=== PATIENT | male | born 1975 | race American Indian/Alaskan Native ===

== ENCOUNTER 2018-07-24 06:11 | Inpatient (IN) | payer OTHER ==
[2018-07-24] MEDS ORDERED: NACL 0.9% 1000 ML 1,000 ML ONE (07:29)
[2018-07-24] MEDS ORDERED: MORPHINE IV ONE ×2 (07:37→12:56)
[2018-07-24] MEDS ORDERED: ZOFRAN IV ONE (07:37)
[2018-07-24] MEDS ORDERED: NACL 0.9% 1000 ML 1,000 ML IV ONE ×2 (07:37→09:11)
--- NOTE | 2018-07-24 07:45 | Emergency Department Report ---
ED General Adult HPI - General Chief complaint: Abdominal Pain Stated complaint: ABDOMINAL,FACE PAIN,BOWERS Time Seen by Provider: 07/24/18 07:27 Source: patient Mode of arrival: Ambulatory Limitations: No Limitations - History of Present Illness Initial comments: Patient is 43 years old male with history of HIV, compliant with his medication. Patient also had history of heart valve replacement he is on Coumadin. Patient presented to the ER complaining of chest pain, abdominal pain , nausea and vomiting. Patient stated that he is not able to keep anything down. Patient stated that he was fine until one week ago when he had swelling to his left jaw and maxillary area he went to an urgent care and he was given antibiotic. Patient stated that his tooth problem is better but started having dyspnea complaint patient denied any diarrhea or fever recently. - Related Data Home Medications Medication Instructions Recorded Confirmed Last Taken Atazanavir (Nf) [Reyataz] 200 mg PO DAILY 04/14/14 04/14/14 04/14/14 Emtricitabin/Tenofovir [TRUVADA 1 tab PO DAILY 04/14/14 04/14/14 04/14/14 200-300 mg] Ritonavir [Norvir] 100 mg PO DAILY 04/14/14 04/14/14 04/14/14 Warfarin [Coumadin] 7.5 mg PO QDAY 04/14/14 04/14/14 04/14/14 Previous Rx's Medication Instructions Recorded Last Taken Type HYDROcodone/APAP 5-325 [[place] 1 each PO Q6HR PRN #20 tablet 04/14/14 Unknown Rx 5/325 mg] Allergies Allergy/AdvReac Type Severity Reaction Status Date / Time No Known Allergies Allergy Verified 07/24/18 07:26 ED Review of Systems ROS: Stated complaint: ABDOMINAL,FACE PAIN,BOWERS Other details as noted in HPI Comment: All other systems reviewed and negative Constitutional: denies: chills, fever ENT: dental pain Respiratory: shortness of breath. denies: cough, orthopnea Cardiovascular: chest pain, palpitations. denies: dyspnea on exertion, orthopnea Gastrointestinal: abdominal pain, nausea, vomiting. denies: diarrhea, constipation, hematemesis, melena, hematochezia Musculoskeletal: denies: back pain Neurological: denies: headache ED Past Medical Hx - Past Medical History Hx HIV: Yes Additional medical history: artificial heart valve - Social History Smoking Status: Never Smoker - Medications Home Medications: Home Medications Medication Instructions Recorded Confirmed Last Taken Type Atazanavir (Nf) [Reyataz] 200 mg PO DAILY 04/14/14 04/14/14 04/14/14 History Emtricitabin/Tenofovir [TRUVADA 1 tab PO DAILY 04/14/14 04/14/14 04/14/14 History 200-300 mg] HYDROcodone/APAP 5-325 [[place] 1 each PO Q6HR PRN #20 tablet 04/14/14 Unknown Rx 5/325 mg] Ritonavir [Norvir] 100 mg PO DAILY 04/14/14 04/14/14 04/14/14 History Warfarin [Coumadin] 7.5 mg PO QDAY 04/14/14 04/14/14 04/14/14 History ED Physical Exam - General Limitations: No Limitations General appearance: alert, in no apparent distress - Head Head exam: Present: atraumatic, normocephalic - ENT ENT exam: Present: mucous membranes dry, other (left maxillary swelling and tenderness) - Neck Neck exam: Present: normal inspection, full ROM. Absent: tenderness, meningismus, lymphadenopathy, thyromegaly - Respiratory Respiratory exam: Present: normal lung sounds bilaterally. Absent: respiratory distress, wheezes, rales, rhonchi, stridor, chest wall tenderness, accessory muscle use, decreased breath sounds, prolonged expiratory - Cardiovascular Cardiovascular Exam: Present: tachycardia - GI/Abdominal GI/Abdominal exam: Present: soft, tenderness, normal bowel sounds. Absent: distended, guarding, rebound, rigid, diminished bowel sounds, organomegaly, mass , bruit, pulsatile mass, hernia - Extremities Exam Extremities exam: Present: normal inspection, full ROM, normal capillary refill. Absent: pedal edema, calf tenderness - Back Exam Back exam: Present: normal inspection, full ROM. Absent: tenderness, CVA tenderness (R), CVA tenderness (L), muscle spasm, paraspinal tenderness, vertebral tenderness - Neurological Exam Neurological exam: Present: alert, oriented X3, CN II-XII intact, normal gait, reflexes normal - Skin Skin exam: Present: warm, intact, normal color ED Course Vital Signs 07/24/18 07/24/18 07/24/18 06:16 07:10 08:02 Temperature 99.0 F 99.0 F 98.5 F Pulse Rate 122 H 120 H 108 H Respiratory 22 22 18 Rate Blood Pressure 147/103 147/103 Blood Pressure 132/86 [Left] O2 Sat by Pulse 99 99 96 Oximetry ED Medical Decision Making - Lab Data Result diagrams: 07/24/18 07:56 07/24/18 07:56 - Radiology Data Radiology results: report reviewed Referring Physician: MIREILLE MCFADDEN Patient Name: SEDA BRENNAN Date of : 1975 Sex: Male Report Date: 2018-07-24 Report Status: Finalized Findings [address] [address] XRay Report Signed Patient: SEDA BRENNAN MR#: [id number] : 1975 Acct:[id number] Age/Sex: 43 / M ADM Date: 07/24/18 Loc: ED Attending Dr: Ordering Physician: MIREILLE MCFADDEN Date of Service: 07/24/18 Procedure(s): XR chest 1V ap Accession Number(s): [id number] cc: MIREILLE MCFADDEN Fluoro Time In Minutes: AP CHEST: HISTORY: chest pain Previous cardiac valve surgical changes are noted, correlate with history. AP view of the chest demonstrates a normal mediastinal and cardiac contour with clear lungs and normal bony and soft tissue structures. No significant change since 04/14/14. IMPRESSION: Unremarkable AP chest. Transcribed By: TTR Dictated By: PINA BARRIENTOS JR, MD Electronically Authenticated By: PINA BARRIENTOS JR, MD Signed Date/Time: 07/24/1829 Referring Physician: MIREILLE MCFADDEN Patient Name: SEDA BRENNAN Date of : 1975 Sex: Male Report Date: 2018-07-24 Report Status: Finalized Findings [address] [address] Cat Scan Report Signed Patient: SEDA BRENNAN MR#: [id number] : 1975 Acct:[id number] Age/Sex: 43 / M ADM Date: 07/24/18 Loc: ED Attending Dr: Ordering Physician: MIREILLE MCFADDEN Date of Service: 07/24/18 Procedure(s): CT abdomen pelvis w con Accession Number(s): [id number] cc: MIREILLE OLIVOVARGHESEPatito CT ABDOMEN PELVIS WITH CONTRAST: HISTORY: abdominal pain. COMPARISON: none. TECHNIQUE: Helical CT in 1.25mm intervals following IV contrast. Sagittal and coronal reconstructions. FINDINGS: Lung bases: Normal. Liver: There are scattered tiny cysts throughout the liver. No surface nodularity or suspicious mass. Biliary system: Normal. Pancreas: Normal. Spleen: Normal. Kidneys/ureters/bladder: Focal cortical scarring is noted in the superior left kidney which probably represents previous pyelonephritis. No evidence for cystic disease, mass or hydronephrosis. The ureters and bladder are unremarkable. Adrenal glands: Normal. Aorta: Normal. Intestines: Normal. Appendix: Normal. Pelvic viscera: Normal. Ascites: None. Adenopathy: None. Musculoskeletal: The bony structures appear mildly demineralized. No fracture or suspicious bony lesion is identified. IMPRESSION: No acute process is identified. Transcribed By: TTR Dictated By: PINA BARRIENTOS JR, MD Electronically Authenticated By: PINA BARRIENTOS JR, MD Signed Date/Time: 07/24/181327 DD/ 24 TD/TT: 07/24/181327 DD/ 8 TD/TT: 07/24/18928 - Medical Decision Making Patient is 43 years old male with history of HIV, compliant with his medication. Patient also had history of heart valve replacement he is on Coumadin. Patient presented to the ER complaining of chest pain, abdominal pain , nausea and vomiting. Patient stated that he is not able to keep anything down. Patient stated that he was fine until one week ago when he had swelling to his left jaw and maxillary area he went to an urgent care and he was given antibiotic. Patient stated that his tooth problem is better but started having dyspnea complaint patient denied any diarrhea or fever recently. Patient stated that he is feeling better. Patient found to have acute renal failure with an increase of creatinine from 0.9 to 1.8, this is an acute most likely due to dehydration from vomiting. CT abdomen and pelvis did not show anything acute. Patient tests x-ray is normal as no acute pneumonia or other disease process. I discussed the patient with Dr. Aram, he agreed to admit the patient to his service. Critical care attestation.: If time is entered above; I have spent that time in minutes in the direct care of this critically ill patient, excluding procedure time. ED Disposition Clinical Impression: Acute renal failure, Dehydration, Abdominal pain Disposition: OP ADMIT IP TO THIS HOSP Is pt being admited?: Yes Condition: Stable Referrals: PRIMARY CARE, [Primary Care Provider] - 3-5 Days
[2018-07-24 08:13] LABS: Basophils % (Auto) 0.4 % (0.0-1.8); Eosinophils % (Auto) 0.2 % (0.0-4.3); Hematocrit 44.4 % (35.5-45.6); Hemoglobin 15.1 gm/dl (11.8-15.2); Lymphocytes # (Auto) 0.9 K/mm3 (1.2-5.4); Lymphocytes % (Auto) 8.4 % (13.4-35.0); Mean Corpuscular HGB Conc 34 % (32-34); Mean Corpuscular Hemoglobin 31 pg (28-32); Mean Corpuscular Volume 92 fl (84-94); Monocytes % (Auto) 8.9 % (0.0-7.3); Platelet Count 192 K/mm3 (140-440); Red Blood Count 4.82 M/mm3 (3.65-5.03); Red Cell Distribution Width 14.1 % (13.2-15.2)
[2018-07-24 08:24] LABS: INR 1.36 (0.87-1.13)
[2018-07-24 08:25] LABS: Partial Thromboplastin Time 37.3 Sec. (24.2-36.6)
[2018-07-24 08:36] LABS: Alanine Aminotransferase 10 units/L (7-56); Albumin 3.3 g/dL (3.9-5); BUN/Creatinine Ratio 9; Blood Urea Nitrogen 17 mg/dL (9-20); Calcium 9.3 mg/dL (8.4-10.2); Hemolysis Index 53; Lipase 24 units/L (13-60)
[2018-07-24 08:42] LABS: Bilirubin,Direct < 0.2 mg/dL (0-0.2)
[2018-07-24 09:06] LABS: Bacteria,Urine 1+ /HPF (Negative); Bilirubin,Urine NEG (Negative); Blood,Urine MOD (Negative); Color,Urine Amber (Yellow); Mucus,Urine FEW /HPF; Protein,Urine >500 mg/dL (Negative)
--- NOTE | 2018-07-24 09:30 | XRay Report ---
AP CHEST: HISTORY: chest pain Previous cardiac valve surgical changes are noted, correlate with history. AP view of the chest demonstrates a normal mediastinal and cardiac contour with clear lungs and normal bony and soft tissue structures. No significant change since 04/14/14. IMPRESSION: Unremarkable AP chest.
[2018-07-24] MEDS ORDERED: ZOSYN/NS 3.375GM/50ML 3.375 GM/50 ML BAG IV ONE (11:15)
[2018-07-24] MEDS ORDERED: NACL 0.9% 50 ML ONE (11:26)
[2018-07-24] MEDS ORDERED: MORPHINE ONE (12:53)
[2018-07-24] MEDS ORDERED: MORPHINE IM ONE (12:54)
--- NOTE | 2018-07-24 13:24 | History and Physical Report ---
History of Present Illness Chief complaint: My head hurts, and my face is swollen, and my stomach hurts too History of present illness: 43 YO Male with HIV, Heart Valve replacement on therapeutic anticoagulation presents to ED for evaluation. Pt states that he has experienced Left facial swelling and pain over the past 3 days with persistent symptoms during the same time frame. Pt acknowledges dental infection but has not received dental follow up. Pt also acknowledges nausea, and 3 episodes of vomiting. Pt denies fever, chills, chest pain, palpitations, loose stools, BRBPR, Trauma, shortness of breath, prolonged travel/immobility, syncope, dizziness, productive cough, skin rash, or recent ill contacts. Pt seen and evaluated in ED and found to have ARF , as well as SIRS secondary to Left maxillary dental abscess. Pt admitted to medical floor. Past History Past Medical History: HIV/AIDS Past Surgical History: Other (heart valve replacement.) Social history: single. denies: smoking, alcohol abuse, prescription drug abuse Family history: hypertension Medications and Allergies Allergies Allergy/AdvReac Type Severity Reaction Status Date / Time No Known Allergies Allergy Verified 07/24/18 07:26 Home Medications Medication Instructions Recorded Confirmed Last Taken Type HYDROcodone/APAP 5-325 [[place] 1 each PO Q6HR PRN #20 tablet 04/14/14 07/24/18 Rx 5/325 mg] Carvedilol [Coreg] 3.125 mg PO BID 07/24/18 07/24/18 07/23/18 History Darunavir/Cob/Emtri/Tenof [place] 1 each PO DAILY 07/24/18 07/24/18 07/23/18 History [Symtuza 487-993-170-10 mg Tab] Sacubitril/Valsartan [Entresto 24 1 each PO BID 07/24/18 07/24/18 07/23/18 History - 26 mg] Sulfamethoxazole/Trimethoprim 1 each PO BID 07/24/18 07/24/18 07/23/18 History [Bactrim DS TAB] Warfarin [Coumadin] 10 mg PO QDAY 07/24/18 07/24/18 07/23/18 History Review of Systems Constitutional: no weight loss, no weight gain, no fever, no chills Ears, nose, mouth and throat: dental pain, no ear pain, no ear discharge, no tinnitis, no decreased hearing, no nose pain, no nasal congestion Cardiovascular: no chest pain, no orthopnea, no palpitations, no rapid/ irregular heart beat, no edema, no syncope, no lightheadedness, no shortness of breath, no dyspnea on exertion, no paroxysmal nocturnal dyspnea, no claudication , no phlebitis, no leg edema, no decreased exercise tolerance Respiratory: no cough, no cough with sputum, no excessive sputum, no hemoptysis , no shortness of breath Gastrointestinal: nausea, vomiting, no diarrhea, no constipation, no change in bowel habits, no hematemesis, no coffee ground emesis, no BRBPR, no melena, no hematochezia, no loss of appetite, no early satiety Genitourinary Male: no dysuria, no hematuria, no flank pain, no discharge, no urinary frequency, no urinary hesitancy Rectal: no pain, no incontinence, no bleeding Musculoskeletal: no neck stiffness, no neck pain, no shooting arm pain, no arm numbness/tingling, no low back pain, no shooting leg pain Integumentary: no rash, no pruritis, no redness, no sores, no wounds Neurological: no head injury, no transient paralysis, no paralysis, no weakness , no parathesias, no numbness, no tingling, no seizures Psychiatric: no anxiety, no memory loss, no change in sleep habits, no sleep disturbances, no insomnia, no hypersomnia, no change in appetite, no change in libido Endocrine: no cold intolerance, no heat intolerance, no polyphagia, no excessive thirst, no polydipsia, no polyuria, no nocturia, no excessive sweating Hematologic/Lymphatic: no easy bruising, no easy bleeding, no lymphadenopathy, no lymphedema Allergic/Immunologic: no urticaria, no allergic rhinitis, no wheezing, no persistent infections, no anaphylaxis, no angioedema Exam - Constitutional Vitals: Temp Pulse Resp BP Pulse Ox 98.5 F 108 H 18 132/86 96 07/24/18 08:02 07/24/18 08:02 07/24/18 08:02 07/24/18 08:02 07/24/18 08:02 General appearance: Present: mild distress - EENT Eyes: Present: PERRL ENT: hearing intact, clear oral mucosa, other (left maxillary edema, erythema, ) - Neck Neck: Present: supple, normal ROM - Respiratory Respiratory effort: normal Respiratory: bilateral: CTA - Cardiovascular Heart Sounds: Present: S1 & S2. Absent: rub, click - Extremities Extremities: pulses symmetrical, No edema Peripheral Pulses: within normal limits - Abdominal General gastrointestinal: Present: soft, non-tender, non-distended, normal bowel sounds Male genitourinary: Present: normal - Integumentary Integumentary: Present: clear, warm, dry - Musculoskeletal Musculoskeletal: gait normal, strength equal bilaterally - Psychiatric Psychiatric: appropriate mood/affect, intact judgment & insight - Neurologic Neurologic: CNII-XII intact, moves all extremities Results - Labs CBC & Chem 7: 07/24/18 07:56 07/24/18 07:56 Labs: Abnormal lab results 07/24/18 07/24/18 07/24/18 Range/Units 07:56 07:56 07:56 WBC 11.2 H (4.5-11.0) K/mm3 Lymph % (Auto) 8.4 L (13.4-35.0) % [place] % (Auto) 8.9 H (0.0-7.3) % Lymph # 0.9 L (1.2-5.4) K/mm3 [place] # 1.0 H (0.0-0.8) K/mm3 Seg Neutrophils % 82.1 H (40.0-70.0) % Seg Neutrophils # 9.2 H (1.8-7.7) K/mm3 PT (12.2-14.9) Sec. INR (0.87-1.13) APTT (24.2-36.6) Sec. Sodium 133 L (137-145) mmol/L Potassium 3.5 L (3.6-5.0) mmol/L Carbon Dioxide 17 L (22-30) mmol/L Creatinine 1.8 H (0.8-1.5) mg/dL Glucose 133 H (75-100) mg/dL Lactic Acid (0.7-2.0) mmol/L Lactate Dehydrogenase 401 H (91-180) units/L Total Protein 10.6 H (6.3-8.2) g/dL Albumin 3.3 L (3.9-5) g/dL 07/24/18 07/24/18 Range/Units 07:56 07:56 WBC (4.5-11.0) K/mm3 Lymph % (Auto) (13.4-35.0) % [place] % (Auto) (0.0-7.3) % Lymph # (1.2-5.4) K/mm3 [place] # (0.0-0.8) K/mm3 Seg Neutrophils % (40.0-70.0) % Seg Neutrophils # (1.8-7.7) K/mm3 PT 17.3 H (12.2-14.9) Sec. INR 1.36 H (0.87-1.13) APTT 37.3 H (24.2-36.6) Sec. Sodium (137-145) mmol/L Potassium (3.6-5.0) mmol/L Carbon Dioxide (22-30) mmol/L Creatinine (0.8-1.5) mg/dL Glucose (75-100) mg/dL Lactic Acid 3.70 H* (0.7-2.0) mmol/L Lactate Dehydrogenase (91-180) units/L Total Protein (6.3-8.2) g/dL Albumin (3.9-5) g/dL Assessment and Plan - Patient Problems (1) SIRS due to infectious process with acute organ dysfunction Current Visit: Yes Status: Acute Plan to address problem: IV antibiotic therapy, CBC, lactic acid, IVF resuscitation, chest x ray, urinalysis, (2) Dental abscess Current Visit: Yes Status: Acute Plan to address problem: CT Face, IV antibiotic therapy. outpatient dental f/u for tooth extraction. (3) Acute renal failure Current Visit: Yes Status: Acute Qualifiers: Acute renal failure type: with acute tubular necrosis Qualified Code(s): N17.0 - Acute kidney failure with tubular necrosis Plan to address problem: IVF resuscitation, monitor uop q shift, repeat bmp in am to assess serum creatnine. (4) HIV (human immunodeficiency virus infection) Current Visit: Yes Status: Acute Plan to address problem: HAART therapy, outpatient ID f/U care. CT Brain. (5) DVT prophylaxis Current Visit: Yes Status: Acute Plan to address problem: SCD to BLE while in bed.
[2018-07-24] MEDS ORDERED: TYLENOL PO PRN (13:26)
[2018-07-24] MEDS ORDERED: ZOFRAN IV PRN (13:26)
[2018-07-24] MEDS ORDERED: PROVENTIL IH PRN (13:26)
[2018-07-24] MEDS ORDERED: SODIUM CHLORIDE FLUSH SYRINGE 10 ML IV PRN (13:26)
--- NOTE | 2018-07-24 13:29 | Cat Scan Report ---
CT ABDOMEN PELVIS WITH CONTRAST: HISTORY: abdominal pain. COMPARISON: none. TECHNIQUE: Helical CT in 1.25mm intervals following IV contrast. Sagittal and coronal reconstructions. FINDINGS: Lung bases: Normal. Liver: There are scattered tiny cysts throughout the liver. No surface nodularity or suspicious mass. Biliary system: Normal. Pancreas: Normal. Spleen: Normal. Kidneys/ureters/bladder: Focal cortical scarring is noted in the superior left kidney which probably represents previous pyelonephritis. No evidence for cystic disease, mass or hydronephrosis. The ureters and bladder are unremarkable. Adrenal glands: Normal. Aorta: Normal. Intestines: Normal. Appendix: Normal. Pelvic viscera: Normal. Ascites: None. Adenopathy: None. Musculoskeletal: The bony structures appear mildly demineralized. No fracture or suspicious bony lesion is identified. IMPRESSION: No acute process is identified.
[2018-07-24] MEDS ORDERED: TORADOL IV ONE (13:58)
[2018-07-24] MEDS ORDERED: NACL 0.45% 1000 ML 1,000 ML IV SCH (14:00)
[2018-07-24] MEDS ORDERED: TORADOL ONE (14:19)
--- NOTE | 2018-07-24 16:21 | Cat Scan Report ---
FINAL REPORT EXAM: CT HEAD/BRAIN WO CON HISTORY: confusion COMPARISON: None. TECHNIQUE: Multiple contiguous axial images were obtained from the skullbase to the vertex without administration of IV contrast. FINDINGS: Brain volume is normal for age. No hemorrhage, mass, mass effect, or midline shift. Ventricles are not enlarged. Normal basal cisterns. No pathologic extra-axial fluid collection. No evidence of acute infarct. No skull fracture. Paranasal sinuses and mastoid air cells are clear. Bilateral orbits are grossly intact. IMPRESSION: No acute intracranial abnormality.
[2018-07-24] MEDS ORDERED: COUMADIN PO SCH (17:00)
[2018-07-24] MEDS: NORCO 5/325 PO PRN (21:12)
[2018-07-24] MEDS: SODIUM CHLORIDE FLUSH SYRINGE 10 ML IV SCH (21:13)
[2018-07-24] MEDS: COUMADIN PO SCH (21:18)
[2018-07-25] MEDS: NORCO 5/325 PO PRN (03:10)
[2018-07-25] MEDS ORDERED: MORPHINE IV PRN (03:27)
[2018-07-25 07:44] LABS: INR 1.85 (0.87-1.13)
[2018-07-25] MEDS: SODIUM CHLORIDE FLUSH SYRINGE 10 ML IV SCH (09:45)
[2018-07-25] MEDS ORDERED: EMTRIVA PO SCH (10:00)
[2018-07-25] MEDS ORDERED: NON-FORMULARY (Emtricitabin/Tenofovir [Truvada 200-300 Mg] 1 TAB) PO SCH (10:00)
[2018-07-25] MEDS ORDERED: ATAZANAVIR 200 MG PO SCH (10:00)
[2018-07-25] MEDS ORDERED: VIREAD PO SCH (10:00)
[2018-07-25] MEDS ORDERED: NORVIR PO SCH (10:00)
--- NOTE | 2018-07-25 15:41 | Cat Scan Report ---
FINAL REPORT EXAM: CT FACIAL BONES W CON HISTORY: Left facial swelling COMPARISON: None. TECHNIQUE: Multiple contiguous axial images were obtained through the face after administration of IV contrast. Reformatted sagittal and coronal images were available for review. FINDINGS: There is no facial fracture. The nasal bones are intact. The zygomatic arches and temporomandibular joints are preserved. There several dental caries. There is stranding and a possible ill-defined 2.3 x 0.8 centimeter fluid collection associated with a cavity of the upper left teeth (series 2, image 31), with surrounding stranding and soft tissue thickening. There is no significant lymphadenopathy. The salivary glands are normal in appearance. The vasculature is normal. IMPRESSION: Ill-defined 2.3 x 0.8 centimeter fluid collection/phlegmonous change associated with the cavity of the left upper teeth (series 2, image 31), that may represent a soft tissue abscess. Associated overlying soft tissue swelling.
[2018-07-25 15:44] VITALS: BP 154/89
--- NOTE | 2018-07-25 16:18 | Progress Note ---
Assessment and Plan Assessment and plan: Patient is a 43 yo man with a history of HIV, mechanical Mitral Valve replacement on Coumandin and hypertension who pw left cheek facial bone swelling and left upper maxillary dental pains. * CT facial bones with IV contrast IMPRESSION: Ill-defined 2.3 x 0.8 centimeter fluid collection/phlegmonous change associated with the cavity of the left upper teeth (series 2, image 31), that may represent a soft tissue abscess. Associated overlying soft tissue swelling. Sepsis from dental abscess IV antibiotic therapy, CBC, lactic acid, IVF resuscitation, chest x ray, urinalysis, Left facial abscess from tooth CT Face reviewed, IV antibiotic therapy. We do not have oral maxillary surgeon, I called [facility] to transfer to Oral facial maxillary surgery, spoke with Nia at 1444pm, she will call me back Acute renal failure, ATN Our last Cr was 0.9 in 2013, IVF resuscitation, monitor uop q shift, repeat bmp in am to assess serum Creatinine. Hold Entresto HIV (human immunodeficiency virus infection) HAART therapy, outpatient ID f/U care. CT Brain. Mechanical Mitral Valve subtherapeutic INR, start iv heparin resume Warfarin goal 2.5-3.5 Hold aspirin for probable excisional drainage. Medical decison making is very complex as he most likely need surgical drainage but this must be done inpatient on heparin drip because of the mechanical mitral valve. CCT 32 minutes History Interval history: Patient was seen and examined. Follow-up on current diagnosis of tooth infection and left face swelling. Overnight uneventful. Patient denies any chest pain, shortness breath, nausea/vomiting or severe headaches. Imaging, nursing note, chart, labs and old chart reviewed. Discussed with patient. Hospitalist Physical - Physical exam Narrative exam: GEN: WDWN, NAD, Awake, Alert, Orientated x 3 HEENT: NCAT, EOMI, PERRL, OP with clear pus upper molar, with missing, decayed teeth NECK: supple, no adenopathy, no thyromegaly, no JVD CVS/HEART: RRR, normal S1S2, pulses present bilaterally CHEST/LUNGS: CTA B, Symmetrical chest expansion, good air entry bilaterally GI/Abdomen: soft, NTND, good bowel sounds, no guarding or rebound /Bladder: no suprapubic tenderness, no CVA or paraspinal tenderness EXT/Skin: no c/c/e, no obvious rash MSK: FROM x 4 Neuro: CN 2-12 grossly intact, no new focal deficits Psych: calm - Constitutional Vitals: Temp Pulse Resp BP Pulse Ox 98.5 F 100 H 18 154/89 97 07/25/18 12:37 07/25/18 15:42 07/25/18 15:42 07/25/18 15:42 07/25/18 15:42 General appearance: Absent: mild distress Results - Labs CBC & Chem 7: 07/24/18 07:56 07/24/18 07:56 Labs: Laboratory Last Values WBC 11.2 K/mm3 (4.5-11.0) H 07/24/18 07:56 RBC 4.82 M/mm3 (3.65-5.03) 07/24/18 07:56 Hgb 15.1 gm/dl (11.8-15.2) 07/24/18 07:56 Hct 44.4 % (35.5-45.6) 07/24/18 07:56 MCV 92 fl (84-94) 07/24/18 07:56 MCH 31 pg (28-32) 07/24/18 07:56 MCHC 34 % (32-34) 07/24/18 07:56 RDW 14.1 % (13.2-15.2) 07/24/18 07:56 Plt Count 192 K/mm3 (140-440) 07/24/18 07:56 Lymph % (Auto) 8.4 % (13.4-35.0) L 07/24/18 07:56 Bee % (Auto) 8.9 % (0.0-7.3) H 07/24/18 07:56 Eos % (Auto) 0.2 % (0.0-4.3) 07/24/18 07:56 Baso % (Auto) 0.4 % (0.0-1.8) 07/24/18 07:56 Lymph # 0.9 K/mm3 (1.2-5.4) L 07/24/18 07:56 [place] # 1.0 K/mm3 (0.0-0.8) H 07/24/18 07:56 Eos # 0.0 K/mm3 (0.0-0.4) 07/24/18 07:56 Baso # 0.0 K/mm3 (0.0-0.1) 07/24/18 07:56 Seg Neutrophils % 82.1 % (40.0-70.0) H 07/24/18 07:56 Seg Neutrophils # 9.2 K/mm3 (1.8-7.7) H 07/24/18 07:56 PT 21.9 Sec. (12.2-14.9) H 07/25/18 07:18 INR 1.85 (0.87-1.13) H 07/25/18 07:18 APTT 37.3 Sec. (24.2-36.6) H 07/24/18 07:56 Sodium 133 mmol/L (137-145) L 07/24/18 07:56 Potassium 3.5 mmol/L (3.6-5.0) L 07/24/18 07:56 Chloride 98.1 mmol/L (98-107) 07/24/18 07:56 Carbon Dioxide 17 mmol/L (22-30) L 07/24/18 07:56 Anion Gap 21 mmol/L 07/24/18 07:56 BUN 17 mg/dL (9-20) 07/24/18 07:56 Creatinine 1.8 mg/dL (0.8-1.5) H 07/24/18 07:56 Estimated GFR 50 ml/min 07/24/18 07:56 BUN/Creatinine Ratio 9 % 07/24/18 07:56 Glucose 133 mg/dL (75-100) H 07/24/18 07:56 Lactic Acid 1.20 mmol/L (0.7-2.0) 07/24/18 10:25 Calcium 9.3 mg/dL (8.4-10.2) 07/24/18 07:56 Total Bilirubin 0.90 mg/dL (0.1-1.2) 07/24/18 07:56 Direct Bilirubin < 0.2 mg/dL (0-0.2) 07/24/18 07:56 AST 30 units/L (5-40) 07/24/18 07:56 ALT 10 units/L (7-56) 07/24/18 07:56 Alkaline Phosphatase 87 units/L (35-129) 07/24/18 07:56 Lactate Dehydrogenase 401 units/L (91-180) H 07/24/18 07:56 Total Protein 10.6 g/dL (6.3-8.2) H 07/24/18 07:56 Albumin 3.3 g/dL (3.9-5) L 07/24/18 07:56 Albumin/Globulin Ratio 0.5 % 07/24/18 07:56 Amylase 74 units/L (27-131) 07/24/18 07:56 Lipase 24 units/L (13-60) 07/24/18 07:56 Urine Color [place] (Yellow) 07/24/18 08:29 Urine Turbidity Slightly-cloudy (Clear) 07/24/18 08: Urine pH 5.0 (5.0-7.0) 07/24/18 08: Ur Specific [place] 1.024 (1.003-1.030) 07/24/18 08:29 Urine Protein >500 mg/dL (Negative) 07/24/18 08:29 Urine Glucose (UA) Neg mg/dL (Negative) 07/24/18 08: Urine Ketones Neg mg/dL (Negative) 07/24/18 08:29 Urine Blood Mod (Negative) 07/24/18 08:29 Urine Nitrite Neg (Negative) 07/24/18 08:29 Urine Bilirubin Neg (Negative) 07/24/18 08: Urine Urobilinogen 4.0 mg/dL (<2.0) 07/24/18 08:29 Ur Leukocyte Esterase Neg (Negative) 07/24/18 08:29 Urine WBC (Auto) 3.0 /HPF (0.0-6.0) 07/24/18 08: Urine RBC (Auto) 3.0 /HPF (0.0-6.0) 07/24/18 08: U Epithel Cells (Auto) 1.0 /HPF (0-13.0) 07/24/18 08: Urine Bacteria (Auto) 1+ /HPF (Negative) 07/24/18 08: Urine Mucus Few /HPF 07/24/18 08:29
--- NOTE | 2018-07-25 16:21 | Consultation ---
History of Present Illness - Reason for Consult Consult date: 07/25/18 facial abscess Requesting physician: DEBBI PETTIT - History of Present Illness 43 y/o male with history of Heart Valve replacement on coumadin and HIV infection since 1996 recently started on Symtuza (used to be on truvada, reytaz , norvir), sees HIV Dr Pierce at [facility]; admitted on 07/24/18 due to a week history of left facial pain and swelling associated with subjective fever, nausea and vomiting. He is known to have multiple caries. He did not seek for dental care. He states his last HIV VL was undetectable done a month ago. In the ED, temp 99, HR 122, R 22, BP 147/103, WBC 11.2. Hg 15.1. Plat 192. Creat 1.8. Lactate 3.7. Sodium 133. UA neg. CXR neg. CT abd neg. CT head neg. CT facial showed 2.3x 0.8 cm fluid collection/phlegmon associated with a cavity of left upper teeth. Microbiology: Blood cultures: 07/24 ngtd Current Antimicrobials: bactrim Previous Antimicrobials: Past History Past Medical History: HIV/AIDS Past Surgical History: Other (heart valve replacement.) Social history: single. denies: smoking, alcohol abuse, prescription drug abuse Family history: hypertension Medications and Allergies Allergies Allergy/AdvReac Type Severity Reaction Status Date / Time No Known Allergies Allergy Verified 07/24/18 07:26 Home Medications Medication Instructions Recorded Confirmed Last Taken Type HYDROcodone/APAP 5-325 [[place] 1 each PO Q6HR PRN #20 tablet 04/14/14 07/24/18 Rx 5-325 mg TAB] ALBUTEROL NEB's [Proventil 0.083% 2.5 mg IH Q4HRT PRN #30 nebu 07/25/18 Unknown Rx NEBS] Acetaminophen [Acetaminophen TAB] 650 mg PO Q4H PRN #30 tablet 07/25/18 Unknown Rx Carvedilol [Coreg] 3.125 mg PO BID #60 tab 07/25/18 07/24/18 07/23/18 Rx Darunavir/Cob/Emtri/Tenof Alaf 1 each PO DAILY #30 tab 07/25/18 07/24/18 Rx [Symtuza [id number] mg Tab] Ritonavir [Norvir] 100 mg PO DAILY tab 07/25/18 Unknown Rx Sulfamethoxazole/Trimethoprim 1 each PO BID #60 07/25/18 07/24/18 07/23/18 Rx [Bactrim DS TAB] Warfarin [Coumadin] 10 mg PO DAILY@1700 #30 tablet 07/25/18 Unknown Rx Active Meds: Active Medications Acetaminophen (Tylenol) 650 mg PO Q4H PRN PRN Reason: Pain MILD(1-3)/Fever >100.5/BOWERS Acetaminophen/Hydrocodone Bitart ([place] 5/325) 1 each PO Q6H PRN PRN Reason: Pain, Moderate (4-6) Last Admin: 07/25/18 03:10 Dose: 1 each Albuterol (Proventil) 2.5 mg IH Q4HRT PRN PRN Reason: Shortness Of Breath Carvedilol (Coreg) 3.125 mg PO BID [facility] Emtricitabine (Emtriva) 200 mg PO QDAY [facility] Last Admin: 07/25/18 10:15 Dose: 200 mg Sodium Chloride (Nacl 0.45% 1000 Ml) 1,000 mls @ 125 mls/hr IV DIRECT [facility] Last Admin: 07/24/18 23:12 Dose: 125 mls/hr Miscellaneous Medication (Darunavir/Cob/Emtri/Tenof Alaf [Symtuza [id number]- 10 Mg Tab]) 1 each PO DAILY [facility] Morphine Sulfate (Morphine) 2 mg IV Q3H PRN PRN Reason: Pain, Moderate (4-6) Last Admin: 07/25/18 03:50 Dose: 2 mg Ondansetron HCl (Zofran) 4 mg IV Q8H PRN PRN Reason: Nausea And Vomiting Ritonavir (Norvir) 100 mg PO DAILY [facility] Last Admin: 07/25/18 09:45 Dose: 100 mg Sodium Chloride (Sodium Chloride Flush Syringe 10 Ml) 10 ml IV BID [facility] Last Admin: 07/25/18 09:45 Dose: 10 ml Sodium Chloride (Sodium Chloride Flush Syringe 10 Ml) 10 ml IV PRN PRN PRN Reason: LINE FLUSH Tenofovir Disoproxil Fumarate (Viread) 300 mg PO QDAY [facility] Last Admin: 07/25/18 10:15 Dose: 300 mg Trimethoprim/Sulfamethoxazole (Bactrim Ds) 1 each PO BID [facility] Warfarin Sodium (Coumadin) 10 mg PO DAILY@1700 [facility]; Protocol Last Admin: 07/24/18 21:18 Dose: 10 mg Review of Systems All systems: negative (as per HPI rest 10 point ROS neg) Physical Examination - Physical Exam Narrative exam: General appearance: Alert in NAD, conversant Eyes: anicteric sclerae, moist conjunctivae; no lid-lag; PERRLA HENT: Atraumatic; oropharynx clear with moist mucous membranes and no mucosal ulcerations/no oral thrush; normal hard and soft palate +left upper teeth with extensive caries and gum swelling. Normal external ears. +left cheek with marked swelling and tenderness Neck: Trachea midline; supple, no thyromegaly or lymphadenopathy Lungs: CTA, with normal respiratory effort and no intercostal retractions CV: RRR, no murmurs Abdomen: Soft, non-tender; no masses or hepatosplenomegaly Extremities: No peripheral edema or extremity lymphadenopathy Skin: Normal temperature, turgor and texture; no rash, ulcers or subcutaneous nodules Psych: Appropriate affect, alert and oriented to person, place and time. Neuro: alert and oriented x 3. Moving all extermities Lines: No CVL / PICC - Constitutional Vitals: Vital Signs Temp Pulse Resp BP Pulse Ox 98.5 F 100 H 18 154/89 97 07/25/18 12:37 07/25/18 15:42 07/25/18 15:42 07/25/18 15:42 07/25/18 15:42 Temperature -Last 24 Hours Temperature 98.5 F Temperature 98.3 F Temperature 98.1 F Temperature 98.0 F Results - Labs CBC & Chem 7: 07/25/18 17:21 07/24/18 07:56 Labs: Abnormal lab results 07/25/18 Range/Units 07:18 PT 21.9 H (12.2-14.9) Sec. INR 1.85 H (0.87-1.13) Assessment and Plan Assessment: 1) Sepsis: Present on admission, manifested by low grade fever, tachycardia, mild leukocytosis, increased lactate. Etiology most likely odontogenic infection 2) Left Orofacial odontogenic infection: -CT facial showed 2.3x 0.8 cm fluid collection/phlegmon associated with a cavity of left upper teeth. 3) Heart Valve replacement on coumadin 4) HIV infection since 1996 recently started on Symtuza (used to be on truvada, reytaz, norvir), sees HIV Dr Pierce at [facility]; a He states his last HIV VL was undetectable done a month ago. Plan: -dental referral -monitor creatinine -start unasyn -stop bactrim -upon discharge will do augmentin 875 mg po q12h total 10 days -fu with HIV provider for creat check in 1 week -continue ART Thank you for your consultation, will follow up with you. Sarah Cruz MD Infectious Diseases Specialist [facility] M [phone] O [phone]
[2018-07-25] MEDS ORDERED: HEPARIN/ 0.45% NACL-25,000 UNIT/500 ML 25,000 UNIT/500 ML BAG IV SCH (17:00)
[2018-07-25] MEDS: COUMADIN PO SCH (17:00)
[2018-07-25 18:06] LABS: Hematocrit 37.8 % (35.5-45.6); Hemoglobin 12.9 gm/dl (11.8-15.2)
--- NOTE | 2018-07-25 18:12 | Discharge Summary ---
Providers - Providers Date of Admission: 07/24/18 13:26 Date of discharge: 07/25/18 Attending physician: DEBBI PETTIT 07/25/18 09:51 Consult to Physician [CONS] Routine Comment: Consulting Provider: LONNIE CLEMENTS Physician Instructions: notified Reason For Exam: HIV, tooth abscess w/ mechanical valve Primary care physician: CONSOLIDATOR Hospitalization Condition: Stable Hospital course: Patient is a 43 yo man with a history of HIV, mechanical Mitral Valve replacement on Coumandin and hypertension who pw left cheek facial bone swelling and left upper molars dental pains. * CT facial bones with IV contrast IMPRESSION: Ill-defined 2.3 x 0.8 centimeter fluid collection/phlegmonous change associated with the cavity of the left upper teeth (series 2, image 31), that may represent a soft tissue abscess. Associated overlying soft tissue swelling. Sepsis from dental abscess IV antibiotic therapy, CBC, lactic acid, IVF resuscitation, chest x ray, urinalysis, Left facial abscess from tooth CT Face reviewed, IV antibiotic therapy. We do not have oral maxillary surgeon, I called [facility] to transfer to Oral facial maxillary surgery, spoke with Nia at 1444pm, she will call me back Acute renal failure, ATN Our last Cr was 0.9 in 2013, IVF resuscitation, monitor uop q shift, repeat bmp in am to assess serum Creatinine. Hold Entresto Consider holding Bactrim, patient doesn't know his CD4 count or viral load. Dr. Chiu ordered CT facial bones with IV contrast, Cr. 1.8, treat with IVF and watch closely HIV (human immunodeficiency virus infection) HAART therapy, CT Brain unremarkable Outpatient ID doctor Dr. Good Pierce [phone], on new medication Symtuza Mechanical Mitral Valve subtherapeutic INR, start iv heparin resume Warfarin goal 2.5-3.5 Hold aspirin for probable excisional drainage. Medical decison making is very complex as he most likely need surgical drainage but this must be done inpatient on heparin drip because of the mechanical mitral valve. Disposition: Transfer to [facility], Spoke with Oral surgeon, Dr. Shelly Altamirano, philomena to see in consultation once patient is transferred. I spoke with Dr. Pam Treviño, Hospitalist and she has accepted patient to [facility]. Await bed I spoke with Charge Nurse, Delfino to get copy of all CT and copy of med list Disposition: [id number] ANOTHER TYPE HLTHCARE Time spent for discharge: 34 minutes Core Measure Documentation - Palliative Care Palliative Care/ Comfort Measures: Not Applicable - Core Measures Any of the following diagnoses?: none - VTE Discharge Requirements Deep Vein Thrombosis/Pulmonary Embolism Present on Admission: No Has pt received <5 days of overlap therapy or INR<2.0: No Anticoagulant overlap therapy prescribed at discharge: No Contraindication No Overlap Therapy order at DC: Not Indicated Exam - Physical Exam Narrative exam: GEN: WDWN, NAD, Awake, Alert, Orientated x 3 HEENT: NCAT, EOMI, PERRL, OP with clear pus upper molar, with missing, decayed teeth NECK: supple, no adenopathy, no thyromegaly, no JVD CVS/HEART: RRR, normal S1S2, pulses present bilaterally CHEST/LUNGS: CTA B, Symmetrical chest expansion, good air entry bilaterally GI/Abdomen: soft, NTND, good bowel sounds, no guarding or rebound /Bladder: no suprapubic tenderness, no CVA or paraspinal tenderness EXT/Skin: no c/c/e, no obvious rash MSK: FROM x 4 Neuro: CN 2-12 grossly intact, no new focal deficits Psych: calm - Constitutional Vitals: Temp Pulse Resp BP Pulse Ox 98.5 F 100 H 18 154/89 97 07/25/18 12:37 07/25/18 15:42 07/25/18 15:42 07/25/18 15:42 07/25/18 15:42 Plan Activity: other (no strenous activity) Diet: low salt Follow up with: PRIMARY CAREMD [Primary Care Provider] - 3-5 Days Forms: Warfarin Discharge Instruction
[2018-07-25 18:25] LABS: INR 1.63 (0.87-1.13)
[2018-07-25 18:27] LABS: Partial Thromboplastin Time 39.3 Sec. (24.2-36.6)
[2018-07-25] MEDS ORDERED: UNASYN/NS 3 GM/100 ML 3 GM/100 ML BAG IV SCH (21:00)
[2018-07-25] MEDS ORDERED: ENTRESTO 24 - 26 MG PO SCH (22:00)
[2018-07-25] MEDS ORDERED: BACTRIM DS PO SCH (22:00)
[2018-07-25] MEDS ORDERED: COREG PO SCH (22:00)
--- NOTE | 2018-07-26 08:11 | Ultrasound Report ---
ULTRASOUND RENAL BILATERAL HISTORY: Acute renal failure. TECHNIQUE: transabdominal ultrasound with color Doppler interrogation. COMPARISON: CT abdomen pelvis with contrast performed 07/24/18. FINDINGS: The right kidney measures 11.2cm. Right renal cortex: 1.6cm. The left kidney measures 11.5cm. Left renal cortex: 1.5cm. The kidneys are normal size, contour and position. There is increased renal cortical echotexture bilaterally consistent with nonspecific renal parenchymal disease. Corticomedullary differentiation is preserved. No evidence for cystic disease, mass, nephrolithiasis, hydronephrosis or perinephric fluid. The views of the bladder and the region of the ureters appear normal. IMPRESSION: Slightly echogenic kidneys consistent with nonspecific renal parenchymal disease. No focal renal lesion or hydronephrosis.
[2018-07-26] MEDS ORDERED: [UNRECOGNIZED DRUG - OTHER] PO SCH (10:00)
== END 2018-07-25 21:00 | disposition short-term general hospital (02) | DRG 974 ==
LOC: ED 06:11 → 4A 13:26
PROVIDERS: ADMIT Internal Medicine; ATTEND Internal Medicine
DX: A41.9 Sepsis, unspecified organism (principal); B20 Human immunodeficiency virus [HIV] disease; N17.0 Acute kidney failure with tubular necrosis; R65.11 Systemic inflammatory response syndrome (SIRS) of non-infectious origin with acute organ dysfunction; E86.0 Dehydration; K04.7 Periapical abscess without sinus; R65.10 Systemic inflammatory response syndrome (SIRS) of non-infectious origin without acute organ dysfunction; Z79.01 Long term (current) use of anticoagulants; Z95.2 Presence of prosthetic heart valve; Z82.49 Family history of ischemic heart disease and other diseases of the circulatory system; Z79.51 Long term (current) use of inhaled steroids; Z79.899 Other long term (current) drug therapy
CPT/HCPCS: 36415; 70450; 70487; 71045; 74177; 76770; 80048; 80074; 81001; 82140; 82150; 83615; 83690; 85014; 85018; 85025; 85049; 85610; 85730; 87040; 93005; 93010; 96361; 96365; 96375; J0295; J1644; J1885; J2270; J2405; J2543; J7030; Q9967